=== PATIENT | male | born 1950 | race Caucasian/White ===

== ENCOUNTER 2016-08-01 09:48 | Inpatient (IN) | payer OTHER, MEDICARE ==
[~2016-08-01] VITALS: Ht 177.8 cm; Wt 93.7 kg
[2016-08-01] MEDS ORDERED: DIGO0.25 PO (11:11)
[2016-08-01] MEDS ORDERED: ROSU40 PO (11:11)
[2016-08-01] MEDS ORDERED: VITA100036 PO (11:11)
[2016-08-01] MEDS ORDERED: CARV25TA PO (11:11)
[2016-08-01] MEDS ORDERED: OMEGCAP PO (11:11)
[2016-08-01] MEDS ORDERED: ALLO300T2 PO (11:11)
[2016-08-01] MEDS ORDERED: APIX5TAB PO (11:13)
[2016-08-08] VITALS (7 sets, daily range): BP systolic 110–142; BP diastolic 69–80; PULSE 71–85; RESP 16–18; TEMP 97.1–97.6; O2SAT 96–99
[2016-08-08] MEDS ORDERED: LACTATED RINGER'S 1000 ML IV SCH (06:00)
[2016-08-08] MEDS ORDERED: SODIUM CHLORID 0.9% 500 ML IV SCH (06:00)
[2016-08-08] MEDS ORDERED: VANCOMYCIN HCL 1000 MG ON-CALL/NS 250 ML IV SCH ×2 (06:00)
[2016-08-08] MEDS ORDERED: ACETAMINOPHEN 1000 MG/100 ML VIAL IV PRN (06:00)
[2016-08-08] MEDS ORDERED: INSULIN HUMAN REGULAR 1,000 UNITS/10 ML VIAL SQ PRN (06:00)
[2016-08-08] MEDS ORDERED: ceFAZolin 1,000 MG/NS 100 ML IV SCH ×2 (06:00)
[2016-08-08] MEDS ORDERED: METOPROLOL TARTRATE 25 MG TAB PO PRN (06:00)
[2016-08-08] MEDS ORDERED: ROSU20 PO (06:08)
[2016-08-08] MEDS ORDERED: CARVEDILOL 12.5 MG TAB PO ONE (06:15)
[2016-08-08] MEDS ORDERED: ceFAZolin 2 GM PREMIX 50 ML IV SCH (06:30)
[2016-08-08] MEDS ORDERED: DEXT 5%-NACL 0.9% 1000 ML INJ 1,000 ML IV SCH (06:30)
[2016-08-08] MEDS ORDERED: METRONIDAZOLE 500 MG/100 ML ISONTONIC SOLN IV SCH (06:30)
[2016-08-08] MEDS ORDERED: fentaNYL CITRATE 250 MCG/5 ML AMP ONE (07:08)
[2016-08-08] MEDS ORDERED: FAMOTIDINE 20 MG/2 ML VIAL ONE (07:08)
[2016-08-08] MEDS ORDERED: HYDROmorphone HCL PF 2 MG/ML VIAL ONE (07:08)
[2016-08-08] MEDS ORDERED: DEXAMETHASONE SOD PHOS 4 MG/ML VIAL ONE (07:08)
[2016-08-08] MEDS ORDERED: MIDAZOLAM HCL 2 MG/2 ML VIAL ONE (07:08)
[2016-08-08] MEDS ORDERED: DICLOFENAC SODIUM 37.5 MG/ML VIAL IV PUSH ONE (07:09)
[2016-08-08] MEDS ORDERED: ceFAZolin INJ 1,000 MG VIAL IV ONE (07:50)
[2016-08-08] MEDS ORDERED: BUPIVACAINE/EPINEPHRINE 0.25% PF 30 ML VIAL INFIL ONE (08:19)
[2016-08-08] MEDS ORDERED: NEOSTIGMINE 3 MG/3 ML SYR IV ONE (08:30)
[2016-08-08] MEDS ORDERED: ONDANSETRON HCL 4 MG/2 ML VIAL IV PUSH ONE (08:30)
[2016-08-08] MEDS ORDERED: PROPOFOL 200 MG/20 ML AMP IV ONE (08:30)
[2016-08-08] MEDS ORDERED: LACTATED RINGER'S 1000 ML INJ 1,000 ML IV ONE (08:30)
[2016-08-08] MEDS ORDERED: ePHEDrine/NS 50 MG/5 ML SYR IV ONE (08:30)
[2016-08-08] MEDS ORDERED: PHENYLEPH/NS 1000 MCG/10 ML SYR IV ONE (08:30)
[2016-08-08] MEDS ORDERED: SODIUM CHLORIDE 0.9% FLUSH 5 ML FLUSH IVF PRN (12:15)
[2016-08-08] MEDS ORDERED: POTASSIUM CHLOR 40 MEQ PREMIX 100 ML IV-CENTRAL PRN (12:15)
[2016-08-08] MEDS ORDERED: ENALAPRILAT 1.25 MG/ML VIAL IV PRN (12:15)
[2016-08-08] MEDS ORDERED: KETOROLAC TROMETHAMINE 30 MG/ML (IVP) VIAL IVP PRN (12:15)
[2016-08-08] MEDS ORDERED: ENALAPRILAT 2.5 MG/2 ML VIAL IV PRN (12:15)
[2016-08-08] MEDS ORDERED: diphenhydrAMINE HCL 50 MG/ML VIAL IV PRN (12:15)
[2016-08-08] MEDS ORDERED: ACETAMINOPHEN/HYDROcodone 325 MG/5 MG TAB PO PRN (12:15)
[2016-08-08] MEDS ORDERED: POTASSIUM CHLOR 20 MEQ PREMIX 100 ML IV PRN (12:15)
[2016-08-08] MEDS ORDERED: Post-op Orders (for Pharmacy) MISC XX ONE (12:15)
[2016-08-08] MEDS: SODIUM CHLORIDE 0.9% FLUSH 5 ML FLUSH IVF SCH ×2 (12:15→20:41)
[2016-08-08] MEDS ORDERED: ONDANSETRON HCL 4 MG/2 ML VIAL IV PRN (12:15)
[2016-08-08] MEDS ORDERED: NALOXONE HCL 0.4 MG/ML AMP IV PRN (12:15)
[2016-08-08] MEDS ORDERED: BENZOCAINE 6 MG/MENTHOL 10 MG LOZENGE SUCK-ON PRN (12:15)
[2016-08-08] MEDS ORDERED: ACETAMINOPHEN 325 MG TAB PO PRN (12:15)
[2016-08-08] MEDS ORDERED: *morphine SULFATE 8 MG/ML PERIprocedure ONLY ONE ×2 (12:41→13:27)
[2016-08-08 13:00] LABS: BASOPHIL % 0.3 % (0.0-2.0); HEMATOCRIT 50.6 % (39.0-51.0); HEMO FLAGS DIFF FINAL; LYMPH % 9.2 % (9.0-44.0); LYMPHOCYTE # 1.1 TH/MM3 (1.0-4.8); MEAN CELL VOLUME 86.8 FL (80.0-100.0); MEAN CORPUSCULAR HEMOGLOBIN 29.6 PG (27.0-34.0); MEAN CORPUSCULAR HGB CONC 34.1 % (32.0-36.0); NEUT % 88.5 % (16.0-70.0); PLATELET COUNT 209 TH/MM3 (150-450); RED BLOOD COUNT 5.83 MIL/MM3 (4.50-5.90); RED CELL DISTRIBUTION WIDTH 14.1 % (11.6-17.2); WHITE BLOOD COUNT 12.4 TH/MM3 (4.0-11.0)
[2016-08-08] MEDS: D5-NS + KCL 20 MEQ INJ 1,000 ML IV SCH ×3 (13:10→20:40)
[2016-08-08] MEDS ORDERED: DO NOT ADM ANY ANTICOAGULANT DRUGS XX PRN (13:15)
[2016-08-08] MEDS: MORPHINE SULFATE 30 MG/30 ML PCA IV SCH (13:16)
[2016-08-08] MEDS ORDERED: DIMETHICONE/OXYBENZONE/PADMIATE LIP BALM 4.25 GM ONE (13:29)
[2016-08-08 13:43] LABS: BICARBONATE 26.4 MEQ/L (21.0-32.0)
[2016-08-08] MEDS: PCA - TOTAL MG MORPHINE DELIVERED PER SHIFT SCH ×2 (14:00→20:40)
[2016-08-08] MEDS ORDERED: *HYDROmorphone PF 1 MG VIAL PERIprocedural Use ONLY ONE (14:22)
[2016-08-08] MEDS: metroNIDAZOLE 500 MG INJ 100 ML IV SCH ×2 (16:00→23:24)
[2016-08-08] MEDS ORDERED: *PROMETHAZINE 25 MG/ML VIAL PERIprocedural use ONLY ONE (17:49)
[2016-08-08] MEDS: CARVEDILOL 12.5 MG TAB PO SCH (20:39)
[2016-08-09] VITALS (29 sets, daily range): BP systolic 94–118; BP diastolic 55–74; PULSE 58–88; RESP 18–20; TEMP 97.6–98.3; O2SAT 93–98
[2016-08-09] MEDS: D5-NS + KCL 20 MEQ INJ 1,000 ML IV SCH ×3 (02:02→23:47)
[2016-08-09] MEDS: PCA - TOTAL MG MORPHINE DELIVERED PER SHIFT SCH ×3 (05:50→23:32)
[2016-08-09] MEDS: MORPHINE SULFATE 30 MG/30 ML PCA IV SCH ×2 (05:59→23:29)
[2016-08-09 06:22] LABS: BICARBONATE 27.4 MEQ/L (21.0-32.0); POTASSIUM 4.5 MEQ/L (3.5-5.1)
[2016-08-09 06:59] LABS: AUTOMATED NEUTROPHIL # 8.7 TH/MM3 (1.8-7.7); BASOPHIL % 0.1 % (0.0-2.0); EOSINOPHIL % 0.1 % (0.0-4.0); HEMATOCRIT 47.1 % (39.0-51.0); HEMO FLAGS DIFF FINAL; LYMPH % 16.9 % (9.0-44.0); MEAN CELL VOLUME 88.7 FL (80.0-100.0); MEAN CORPUSCULAR HEMOGLOBIN 29.7 PG (27.0-34.0); MEAN CORPUSCULAR HGB CONC 33.5 % (32.0-36.0); NEUT % 72.9 % (16.0-70.0); PLATELET COUNT 185 TH/MM3 (150-450); RED BLOOD COUNT 5.31 MIL/MM3 (4.50-5.90); RED CELL DISTRIBUTION WIDTH 14.1 % (11.6-17.2)
[2016-08-09] MEDS: metroNIDAZOLE 500 MG INJ 100 ML IV SCH (08:50)
--- NOTE | 2016-08-09 08:50 | HHI.PR ---
Subjective Remarks POD#1 s/p robotic nahum/robotic sigmoid resection, lap rico 'sore', no nausea Objective Vital Signs Date Time Temp Pulse Resp B/P Pulse Ox O2 Delivery O2 Flow Rate FiO2 08/09/16 06:04 20 08/09/16 06:00 72 08/09/16 05:59 20 08/09/16 05:50 20 08/09/16 05:00 70 08/09/16 04:00 Nasal Cannula 2.00 08/09/16 04:00 98.2 76 18 94/55 97 08/09/16 04:00 82 08/09/16 03:00 68 08/09/16 02:00 79 08/09/16 01:00 71 08/09/16 00:00 Nasal Cannula 2.00 08/09/16 00:00 78 08/09/16 00:00 97.6 70 18 110/69 98 08/09/16 00:00 58 08/08/16 23:00 76 08/08/16 22:00 74 08/08/16 21:00 85 08/08/16 20:40 20 08/08/16 20:00 97.1 71 18 110/72 99 08/08/16 20:00 Nasal Cannula 2.00 08/08/16 20:00 79 08/08/16 19:00 78 08/08/16 18:24 75 16 117/69 97 08/08/16 18:24 75 08/08/16 18:05 79 14 133/96 96 Nasal Cannula 2 08/08/16 15:45 67 14 121/74 97 Nasal Cannula 2 08/08/16 13:45 75 14 126/75 98 Nasal Cannula 2 08/08/16 13:16 16 08/08/16 12:45 72 14 142/81 98 Nasal Cannula 4 08/08/16 12:30 77 14 127/86 97 Nasal Cannula 4 08/08/16 12:15 74 14 137/91 98 Nasal Cannula 4 08/08/16 12:10 98.7 78 14 135/93 98 Nasal Cannula 4 I/O 08/08/16 08/08/16 08/08/16 08/09/16 08/09/16 08/09/16 07:00 15:00 23:00 07:00 15:00 23:00 Intake Total 1800 ml 1100 ml 3037 ml Output Total 270 ml 425 ml 600 ml Balance 1530 ml 675 ml 2437 ml Intake Oral 100 ml 360 ml IV Total 1000 ml 2677 ml Other 1800 ml Output Urine Total 425 ml 600 ml Estimated Blood Loss 150 ml Other 120 ml Result Diagram: 08/09/16 0509 08/09/16 0509 Objective Remarks Soft, mild distension, tender Dressings c/d/i Assessment and Plan Assessment and Plan Doing well Decrease IVF Remove stent - kamara out tomorrow [employer] Arely Amor MD Aug 09, 2016 08:50
[2016-08-09] MEDS: DIGOXIN 0.25 MG TAB PO SCH (08:51)
[2016-08-09] MEDS: CARVEDILOL 12.5 MG TAB PO SCH ×2 (08:51→21:54)
[2016-08-09] MEDS: PANTOPRAZOLE SODIUM 40 MG VIAL IVP SCH (08:51)
[2016-08-09] MEDS: SODIUM CHLORIDE 0.9% FLUSH 5 ML FLUSH IVF SCH ×2 (08:51→21:54)
[2016-08-09] MEDS: HEPARIN SODIUM - SQ 10,000 UNITS/ML VIAL SQ SCH ×2 (11:16→23:32)
[2016-08-10] VITALS (19 sets, daily range): BP systolic 121–140; BP diastolic 76–92; PULSE 64–91; RESP 16–18; TEMP 98.2–98.5; O2SAT 92–95
[2016-08-10] MEDS: PCA - TOTAL MG MORPHINE DELIVERED PER SHIFT SCH (05:20)
[2016-08-10 06:16] LABS: BICARBONATE 27.8 MEQ/L (21.0-32.0); POTASSIUM 4.1 MEQ/L (3.5-5.1)
[2016-08-10 06:19] LABS: AUTOMATED NEUTROPHIL # 5.6 TH/MM3 (1.8-7.7); BASOPHIL % 0.4 % (0.0-2.0); EOSINOPHIL # 0.1 TH/MM3 (0-0.4); EOSINOPHIL % 1.2 % (0.0-4.0); HEMATOCRIT 46.3 % (39.0-51.0); HEMO FLAGS DIFF FINAL; LYMPH % 25.3 % (9.0-44.0); LYMPHOCYTE # 2.3 TH/MM3 (1.0-4.8); MEAN CELL VOLUME 90.2 FL (80.0-100.0); MEAN CORPUSCULAR HEMOGLOBIN 29.8 PG (27.0-34.0); MEAN CORPUSCULAR HGB CONC 33.1 % (32.0-36.0); NEUT % 61.1 % (16.0-70.0); PLATELET COUNT 163 TH/MM3 (150-450); RED BLOOD COUNT 5.13 MIL/MM3 (4.50-5.90); RED CELL DISTRIBUTION WIDTH 14.3 % (11.6-17.2); WHITE BLOOD COUNT 9.2 TH/MM3 (4.0-11.0)
[2016-08-10] MEDS: CARVEDILOL 12.5 MG TAB PO SCH ×2 (08:58→22:30)
[2016-08-10] MEDS: DIGOXIN 0.25 MG TAB PO SCH (08:58)
[2016-08-10] MEDS: PANTOPRAZOLE SODIUM 40 MG VIAL IVP SCH (08:58)
[2016-08-10] MEDS: D5-NS + KCL 20 MEQ INJ 1,000 ML IV SCH (09:00)
[2016-08-10] MEDS: SODIUM CHLORIDE 0.9% FLUSH 5 ML FLUSH IVF SCH ×2 (09:00→22:30)
[2016-08-10] MEDS: HEPARIN SODIUM - SQ 10,000 UNITS/ML VIAL SQ SCH ×2 (11:45→22:30)
--- NOTE | 2016-08-10 13:00 | HHI.PR ---
Subjective Remarks POD#2 s/p robotic nahum/robotic sigmoid resection, lap rico comfortable Objective Vital Signs Date Time Temp Pulse Resp B/P Pulse Ox O2 Delivery O2 Flow Rate FiO2 08/10/16 11:47 98.5 73 18 129/78 93 08/10/16 08:52 98.5 81 16 129/81 92 08/10/16 08:52 92 Room Air 08/10/16 07:32 95 21 08/10/16 06:33 73 08/10/16 05:26 98.5 77 18 121/78 95 08/10/16 05:20 18 08/10/16 05:00 75 08/10/16 04:00 80 08/10/16 03:00 80 08/10/16 02:00 80 08/10/16 01:03 80 08/09/16 23:46 16 08/09/16 23:42 95 Room Air 08/09/16 23:34 98.2 74 18 115/74 95 08/09/16 23:32 18 08/09/16 23:29 18 08/09/16 23:00 74 08/09/16 22:00 67 08/09/16 21:54 98.3 80 18 118/68 94 08/09/16 21:00 68 08/09/16 20:00 66 08/09/16 19:00 77 08/09/16 18:00 70 08/09/16 17:15 97.8 76 18 108/64 94 08/09/16 17:05 94 21 08/09/16 17:00 68 08/09/16 16:00 73 08/09/16 15:00 68 08/09/16 14:00 16 08/09/16 14:00 69 08/09/16 13:01 79 I/O 08/09/16 08/09/16 08/09/16 08/10/16 08/10/16 08/10/16 07:00 15:00 23:00 07:00 15:00 23:00 Intake Total 3037 ml 2408 ml 1663 ml Output Total 600 ml 500 ml 600 ml Balance 2437 ml 1908 ml 1063 ml Intake Oral 360 ml 910 ml 480 ml IV Total 2677 ml 1498 ml 1183 ml Output Urine Total 600 ml 500 ml 600 ml Result Diagram: 08/10/1651908/10/16519 Objective Remarks Soft, mild distension, tender wounds clean Assessment and Plan Assessment and Plan d/C kamara Advance diet HL IV d/c [employer] Transfer to B Arely Amor MD Aug 10, 2016 13:00
[2016-08-10] MEDS: ACETAMINOPHEN/HYDROcodone 325 MG/5 MG TAB PO PRN ×2 (13:19→19:17)
[2016-08-11] VITALS: BP 146/84; PULSE 67; RESP 18; TEMP 98; O2SAT 95
[2016-08-11 04:00] VITALS: BP 155/102; PULSE 62; RESP 18; TEMP 97.9; O2SAT 92
[2016-08-11 07:00] VITALS: BP 152/93; PULSE 80; RESP 20; TEMP 97.9; O2SAT 94
[2016-08-11 07:13] LABS: AUTOMATED NEUTROPHIL # 4.7 TH/MM3 (1.8-7.7); BASOPHIL # 0.1 TH/MM3 (0-0.2); BASOPHIL % 0.8 % (0.0-2.0); EOSINOPHIL # 0.2 TH/MM3 (0-0.4); HEMATOCRIT 48.3 % (39.0-51.0); HEMO FLAGS DIFF FINAL; LYMPH % 26.5 % (9.0-44.0); MEAN CELL VOLUME 88.1 FL (80.0-100.0); MEAN CORPUSCULAR HEMOGLOBIN 29.8 PG (27.0-34.0); MEAN CORPUSCULAR HGB CONC 33.8 % (32.0-36.0); NEUT % 60.7 % (16.0-70.0); PLATELET COUNT 172 TH/MM3 (150-450); RED BLOOD COUNT 5.48 MIL/MM3 (4.50-5.90); RED CELL DISTRIBUTION WIDTH 13.7 % (11.6-17.2); WHITE BLOOD COUNT 7.7 TH/MM3 (4.0-11.0)
[2016-08-11 07:54] LABS: BICARBONATE 30.1 MEQ/L (21.0-32.0); POTASSIUM 3.4 MEQ/L (3.5-5.1)
[2016-08-11 09:31] VITALS: O2SAT 97
[2016-08-11] MEDS: PANTOPRAZOLE SODIUM 40 MG VIAL IVP SCH (09:55)
[2016-08-11] MEDS: CARVEDILOL 12.5 MG TAB PO SCH (09:55)
[2016-08-11] MEDS: SODIUM CHLORIDE 0.9% FLUSH 5 ML FLUSH IVF SCH (09:56)
[2016-08-11 11:00] VITALS: BP 150/93; PULSE 71; RESP 18; TEMP 98.1; O2SAT 93
[2016-08-11] MEDS: DIGOXIN 0.25 MG TAB PO SCH (11:23)
[2016-08-11] MEDS: HEPARIN SODIUM - SQ 10,000 UNITS/ML VIAL SQ SCH (11:25)
--- NOTE | 2016-08-11 14:49 | HHI.PR ---
Subjective Remarks POD#3 s/p robotic nahum/robotic sigmoid resection, lap rico comfortable, wants to go home Objective Vital Signs Date Time Temp Pulse Resp B/P Pulse Ox O2 Delivery O2 Flow Rate FiO2 08/11/16 11:00 98.1 71 18 150/93 93 08/11/16 09:31 97 21 08/11/16 07:00 97.9 80 20 152/93 94 08/11/16 07:00 94 Room Air 08/11/16 04:00 97.9 62 18 155/102 92 08/11/16 00:00 98.0 67 18 146/84 95 08/10/16 19:56 21 08/10/16 19:23 98.3 72 18 140/92 93 08/10/16 19:00 93 Room Air 08/10/16 16:25 98.2 64 18 122/76 93 I/O 08/10/16 08/10/16 08/10/16 08/11/16 08/11/16 08/11/16 07:00 15:00 23:00 07:00 15:00 23:00 Intake Total 1663 ml 2170 ml 700 ml Output Total 600 ml 1100 ml Balance 1063 ml 1070 ml 700 ml Intake Oral 480 ml 1270 ml 700 ml IV Total 1183 ml 900 ml 0 ml Output Urine Total 600 ml 1100 ml # Voids 1 4 # Bowel Movements 1 Result Diagram: 08/11/16 0618 08/11/16 0618 Objective Remarks Soft, no distension, tender wounds clean Assessment and Plan Assessment and Plan Home today followup 3 weeks Arely Amor MD Aug 11, 2016 14:49
[2016-08-11] MEDS ORDERED: HYDR-3516 PO (14:52)
[2016-08-11 15:00] VITALS: BP 142/99; PULSE 79; RESP 18; TEMP 97.7; O2SAT 94
--- NOTE | 2016-08-12 18:25 | MP ---
cc: LISANDRO TILLMAN M.D., KATHLEEN M.D. Corrected: 08/26/2016 DATE OF SURGERY: 08/08/2016 PREOPERATIVE DIAGNOSIS: Cholecystitis, chronic POSTOPERATIVE DIAGNOSIS Cholecystitis, chronic ANESTHESIA General endotracheal SURGEON Kevon ESTIMATED BLOOD LOSS Less than 50 mls. COMPLICATIONS: None. DRAINS: None. SPECIMEN: Gallbladder and stones to pathology. PROCEDURE IN DETAIL The patient was taken to the operating room and placed on the operating table in the supine position. After an adequate level of general endotracheal anesthesia was achieved the patient was placed in lithotomy position and Dr. Dell Miramontes came into the room and performed ureteral stent placement for Dr. Amor in anticipation of his sigmoid resection. Please see his dictation for this portion of the procedure. When this was completed the undersigned participated in shaving, prepping and draping of the abdomen. Time-out was taken once again confirming the correct patient, site and procedure to be performed. Skin and subcutaneous tissue was infiltrated with local anesthetic and a 12 mm trocar was inserted to the right of the umbilicus under direct vision. Towel clips were used to elevate the fascia to allow for penetration of the fascia with a direct visualization utilizing the camera and the 12-mm trocar. Low insufflation was changed to high flow after the peritoneal cavity was directly visualized. Three 5 mm trocars were then placed with one in the right midabdomen, one in the right lower quadrant and a third one in the left upper quadrant. These were trocar sites to be used by Dr. Amor for the sigmoid resection portion of the procedure. The fundus of the gallbladder was grasped and retracted upward. A fair amount of old adhesions were seen on the gallbladder. These were taken down with blunt dissection and electrocautery. The gallbladder was then retracted upward and the cystic duct infundibular junction was identified. The cystic artery was also identified and this individual. The artery was doubly clipped proximally, singly clipped on the gallbladder side and divided. The cystic duct infundibular junction could not be easily dissected and thus the dome down approach was utilized. The gallbladder was dissected off of the liver bed down to the level of the infundibulum of the gallbladder. When this had been accomplished, the cystic duct was easily identified. As the patient did not have a dilated common duct or nor did he have elevated LFTs, cholangiogram was not obtained. The common bile duct was visualized on this individual and care was taken to place clips on this the cystic duct near the base of the gallbladder. Two clips were placed on the cystic duct infundibular junction and a single clip was then placed on the infundibulum of the gallbladder was divided between the clips. A small stump of the distal cystic duct was left to the patient were to be relatively short cystic duct was not impinged upon utilizing the clips. When this had been completed, irrigation of the liver bed revealed hemostasis. All of the dissected tissue was also clean and dry. Cystic artery stump and cystic duct stump were seen to be clean and dry. At this point of the gallbladder was placed into an EndoCatch device and removed via the 12 mm trocar and passed off the table. Upper abdomen was once again reexamined and all bleeding seen to be meticulously controlled. Cystic artery stump and cystic duct stump were once again revisualized and seen to be clean and dry. At this point cindi scrubbed out and then Dr. Bellamy scrubbed in to perform colonic portion of the procedure. Please see her dictation for this. MD MERLINE Choudhary/wade /10:00 AM /6:18 PM TASHA
--- NOTE | 2016-08-12 19:23 | MP ---
cc: IRAIDA MIRAMONTES DATE OF SURGERY: 08/08/2016 PREOPERATIVE DIAGNOSIS: Diverticulitis and cholecystitis. POSTOPERATIVE DIAGNOSIS: Diverticulitis and cholecystitis. PROCEDURE: Cystoscopy, bilateral ureteral catheter placement. SURGEON Iraida Miramontes MD. ANESTHESIA General endotracheal tube FLUIDS: 100 cc crystalloid. ESTIMATED BLOOD LOSS: No blood loss. COMPLICATIONS: No complications. PROCEDURE: Alfred Presley is a 66-year-old male who has a history of cholecystitis and diverticulitis. He was scheduled undergo robotic-assisted laparoscopic colectomy by Dr. Amor requests were made for bilateral ureteral catheter placement. He also has cholecystitis in Dr. Kevon was performing a laparoscopic cholecystectomy today also. Risks and benefits discussed and he was willing to proceed. The patient brought to operating room, identified by myself as Alfred Presley. He is placed in dorsal spine position, prepped and draped in the usual sterile fashion, received preprocedure antibiotics, and general endotracheal tube anesthesia was administered. A 22-Eritrean cystoscope was inserted bladder allison cystoscopy showed coapting prostatic lobes but no other abnormalities were identified within the bladder. The left ureteral orifice was identified and a 5-Eritrean open catheter was inserted in the left ureteral orifice without difficulty and then this was then repeated on the right side. The catheters went up without difficulty and a 16-Eritrean Callaway was also inserted. He tolerated procedure well. Iraida MARTINEZ/wade /11:27 AM /7:16 PM
--- NOTE | 2016-08-13 07:07 | MP ---
cc: JOEL DEVLIN M.D., JEFFREY DATE OF SURGERY 08/08/2016 PREOPERATIVE DIAGNOSIS 1. Diverticulitis 2. Cholecystitis POSTOPERATIVE DIAGNOSIS 1. Diverticulitis 2. Cholecystitis 3. Adhesions SURGEON Joel Devlin MD DINKEY ENGINEER [place] ANESTHESIA General per ET tube ESTIMATED BLOOD LOSS 100 cc OPERATIVE INDICATIONS The patient is a 66-year-old male who was recently admitted to the hospital with a combination of both cholecystitis and diverticulitis with micro perforation. OPERATIVE FINDINGS For the gallbladder, please see Dr. Lund's notes for details. For the colon, the patient had an inflamed colon which was adherent to the left pelvic sidewall. The remainder of the colon appeared normal, as did the liver. PROCEDURE COURSE The patient was brought to the operating room, and placed in the supine position. After induction of general anesthesia, Dr. Miramontes came in and performed cystoscopy with placement of bilateral ureteral catheters, please see his operative note for details. Dr. Lund then came in and performed a laparoscopic cholecystectomy. When he was completed, I came into the operating room. At that point, I placed the laparoscope into the previously placed port by Dr. Lund and did some visualization. The sigmoid colon was adherent to the left pelvic sidewall, but there were no other abnormalities which would preclude the robotic approach. All of the ports were in good position with the exception of the right lower quadrant port and I did need to replace that with a port further lateral. A 10/12 port was placed just inside the right anterior superior iliac spine, under direct vision using the laparoscope. The patient was hydroplaned with head down and the small bowel was brought up and out of the pelvis and to the right, which allowed good visibility of the colonic vessels and the robot was docked. The sigmoid colon was retracted down and to the left, and the perineum was scored on the right. Dissection was continued in this plane posterior to the inferior mesenteric vessels until the left ureter was clearly identified and swept away from the dissection plane. Dissection continued in this plane through to the lateral pelvic wall. The adhesions to the left pelvic sidewall were then dissected free until we met our previous dissection. Dissection then continued inferiorly, posterior to the rectum down to level of the mid to distal rectum, and up and around the lateral side on both the right and the left, until we had full mobility of the mid rectum, proximal rectum, and the sigmoid colon. At this point, a window was made around the inferior mesenteric vessel and opened using electrocautery. An [employer] End[employer] stapler, white load, was brought onto the field and placed across the vessels. This was closed, held for 30 seconds, fired, and removed, thus dividing the vessels. A small amount of bleeding on the edge of the staple line was controlled using electrocautery. At this point, a sponge stick was placed into the rectum, and a site was chosen for division of the rectum on the mid rectum/proximal rectum junction. The 33 EEA stapler was then advanced to the same area to be sure that we got good advancement of the stapler to this point. The mesentery at this level was then divided using the harmonic scalpel and a reload of the MANASA stapler was placed across the bowel at this level. This was closed, held for 30 seconds, fired and removed. The descending bowel was then retracted to the right and the lateral peritoneal attachments of the descending colon were dissected free, carefully freeing the descending colon mesentery from underlying Gerota's fascia. This dissection continued up to the splenic flexure, but not around the splenic flexure. After measuring, I felt that the bowel came down nicely and we had adequate length to perform a tension-free anastomosis. The proximal stapled end of the bowel was grasped and the robot was undocked. A 6-8 cm incision was made in the suprapubic area, using electrocautery. Dissection was carried down to the fascia of the anterior abdominal wall, which was split the length of the skin incision. The medial fibers of the rectus abdominis muscle were then divided, and the posterior fascia/peritoneum was also divided the length of the skin incision. A wound protector was then placed and the proximal stapled end of the bowel was brought up and out through the wound protector. A site was then chosen for proximal division of bowel where it came down to the pubic tubercle. The mesentery at this level was divided and ligated using 0 Vicryl ties, and a pursestring stapling device was placed across the bowel at this level. The anvil from the 33 EEA was placed into the cut end of the bowel. One end of the pursestring suture was noted to be cut and not attached, so that was tied. Unfortunately, the other and was also loose. Presumably this was due to a defective suture. With this, that suture was removed and a 2-0 Prolene suture was used to do a hand-sewn pursestring suture around the edge of the cut edge of the bowel. This was then tied around the shaft of the anvil, and a little bit of excess tissue was removed sharply. The 33 EEA stapler was then brought up through the rectum. A small amount of fibrofatty tissue was cleared from the edge of the bowel. The spike was advanced, just posterior to the staple line. The anvil was into the spike and the stapler was closed, making sure that the bowel was not twisted. The stapler was held for 30 seconds, fired, and removed, thus creating an enter- enterotomy. The enterotomy appeared pink and healthy circumferentially. Both anastomotic rings appeared to be complete. Warm normal saline was placed in the pelvis and the proximal bowel was occluded with digital pressure. Air was insufflated into the rectum until gentle tension was noted on the anastomosis, with no sign of any leakage noted. The air was desufflated to the extent possible and the saline was suctioned out of the pelvis. All dissection beds were then examined with no sign of any bleeding was noted. The posterior fascia at the suprapubic incision was closed in a running fashion using #1 PDS, and the anterior fascia at the suprapubic incision was closed in a running fashion using #1 PDS. OpSite was placed over this incision. Air was insufflated into the peritoneal cavity again, and the two 10/12 trocar sites at the umbilical site and the right lower quadrant site were closed using the crossbow closure device and 0 Vicryl suture. These were placed but not secured until the air was desufflated to the extent possible from the abdominal cavity. The sutures were then secured. The wounds were irrigated with warm normal saline. The suprapubic incision was closed in a running subcuticular fashion using 3-0 Vicryl, and the trocar sites were closed in an interrupted subcuticular fashion using 3-0 Vicryl. Steri-Strips and a sterile dressings was then applied. The right ureteral stent was removed. All sponge, needle and sponge counts were correct and the patient was returned to the post anesthesia care unit in stable condition. MD ELI Guaman /12:07 PM /6:32 AM TASHA
--- NOTE | 2016-10-09 12:12 | MD ---
cc: JOEL DEVLIN M.D. ADMISSION DATE: 08/08/2016 DISCHARGE DATE: 08/11/2016 ADMISSION DIAGNOSES 1. Diverticulitis. 2. Cholecystitis. 3. Atrial fibrillation. DISCHARGE DIAGNOSES 1. Diverticulitis. 2. Cholecystitis. 3. Atrial fibrillation. PROCEDURES 1. Cystoscopy with placement of bilateral ureteral catheters. 2. Robotic low anterior resection. 3. Laparoscopic cholecystectomy. HOSPITAL COURSE The patient is a 66-year-old male with a history of diverticulitis with micro-perforation and severe cholecystitis. He was admitted to the hospital on the July,, after an outpatient bowel prep. He was taken to the operating room, where he then underwent the above-named procedures. Postoperatively he did well with rapid return of bowel and bladder function. He was discharged to home on hospital day #3 with instructions to follow up with myself in the office. Final pathology showed chronic cholecystitis and no evidence of diverticulitis. MD DUSTIN Guaman/AMMON /9:50 AM /12:08 PM TASHA
== END 2016-08-11 16:12 | disposition home or self-care (01) | DRG 330 ==
LOC: HSDI 08-08 05:24 → HCPC 08-08 18:24
PROVIDERS: ADMIT Colon & Rectal Surgery; ATTEND Colon & Rectal Surgery
PROC: 0T9B80Z Drainage of Bladder with Drainage Device, Via Natural or Artificial Opening Endoscopic (ICD-10-PCS; 2016-08-08)
PROC: 8E0W8CZ Robotic Assisted Procedure of Trunk Region, Via Natural or Artificial Opening Endoscopic (ICD-10-PCS; 2016-08-08)
PROC: 0DTN4ZZ Resection of Sigmoid Colon, Percutaneous Endoscopic Approach (ICD-10-PCS; principal; 2016-08-08 07:27)
PROC: 0DNG4ZZ Release Left Large Intestine, Percutaneous Endoscopic Approach (ICD-10-PCS; 2016-08-08 07:27)
PROC: 0FT44ZZ Resection of Gallbladder, Percutaneous Endoscopic Approach (ICD-10-PCS; 2016-08-08 07:27)
DX: K57.92 Diverticulitis of intestine, part unspecified, without perforation or abscess without bleeding (principal); K80.10 Calculus of gallbladder with chronic cholecystitis without obstruction; I48.91 Unspecified atrial fibrillation; I11.0 Hypertensive heart disease with heart failure; I50.9 Heart failure, unspecified; E66.9 Obesity, unspecified; K66.0 Peritoneal adhesions (postprocedural) (postinfection); E78.5 Hyperlipidemia, unspecified; Z68.29 Body mass index [BMI] 29.0-29.9, adult; Z79.01 Long term (current) use of anticoagulants; Z86.14 Personal history of Methicillin resistant Staphylococcus aureus infection
CPT/HCPCS: 80048; 85025; 86850; 86900; 86901; 88304; 88307; C9113; J0131; J0690; J1100; J1130; J1170; J1644; J2250; J2270; J2370; J2405; J2550; J2710; J3010; J3370; J3480; J7050; J7120

== ENCOUNTER → 2016-08-01 | Outpatient (CLI) | payer OTHER ==
[~2016-08-01] MED LIST: ALLO100 PO; ALLO300T2 PO; APIX2.5T PO; APIX5TAB PO; ASPI81TA82 PO; CARV25TA PO; CIPR750T10 PO; DIGO0.25 PO; FLAG500T PO; HYDR-3516 PO; LANO0.2510 PO; OMEGCAP PO; ROSU20 PO; ROSU40 PO; SUCR1TAB PO; VITA100036 PO
[2016-08-01 10:39] LABS: BLOOD, URINE SMALL (NEG); COMMENT (UR) CULT NOT INDICATED; CULTURE IF INDICATED CULT NOT INDICATED; GLUCOSE,URINE TRACE mg/dL (NEG); KETONE, URINE NEG (NEG); MUCUS URINE FEW /lpf (OCC); NITRITE,URINE NEG (NEG); URINE COLOR YELLOW (YELLW/STRAW)
[2016-08-01 10:42] LABS: PROTHROMBIN TIME - PATIENT 10.6 SEC (9.8-11.6)
[2016-08-01 10:43] LABS: AUTOMATED NEUTROPHIL # 3.4 TH/MM3 (1.8-7.7); BASOPHIL % 0.7 % (0.0-2.0); EOSINOPHIL # 0.1 TH/MM3 (0-0.4); EOSINOPHIL % 2.2 % (0.0-4.0); HEMATOCRIT 52.4 % (39.0-51.0); HEMO FLAGS DIFF FINAL; LYMPH % 34.2 % (9.0-44.0); LYMPHOCYTE # 2.2 TH/MM3 (1.0-4.8); MEAN CELL VOLUME 86.4 FL (80.0-100.0); MEAN CORPUSCULAR HEMOGLOBIN 29.3 PG (27.0-34.0); MEAN CORPUSCULAR HGB CONC 33.9 % (32.0-36.0); MONO % 10.2 % (0.0-8.0); NEUT % 52.7 % (16.0-70.0); PLATELET COUNT 200 TH/MM3 (150-450); RED BLOOD COUNT 6.06 MIL/MM3 (4.50-5.90); RED CELL DISTRIBUTION WIDTH 14.1 % (11.6-17.2); WHITE BLOOD COUNT 6.4 TH/MM3 (4.0-11.0)
[2016-08-01 11:11] LABS: ALKALINE PHOSPHATASE 69 U/L (45-117); ALT (GPT) 25 U/L (12-78); ANION GAP 10 MEQ/L (5-15); AST (GOT) 11 U/L (15-37); BICARBONATE 28.4 MEQ/L (21.0-32.0); BLOOD UREA NITROGEN 16 MG/DL (7-18); CHLORIDE 103 MEQ/L (98-107); GLOMERULAR FILTRATION RATE 62 ML/MIN (>89); GLUCOSE,FASTING 104 MG/DL (74-99); POTASSIUM 4.4 MEQ/L (3.5-5.1); SODIUM (NA) 141 MEQ/L (136-145)
== END ==
LOC: CPRE 09:38
PROVIDERS: ATTEND Colon & Rectal Surgery
DX: Z01.812 Encounter for preprocedural laboratory examination (principal); K57.32 Diverticulitis of large intestine without perforation or abscess without bleeding
CPT/HCPCS: 36415; 80053; 81001; 85025; 85610; 85730

== ENCOUNTER 2017-01-27 07:40 | Emergency (ER) | payer OTHER ==
[~2017-01-27] VITALS: Ht 177.8 cm; Wt 94.0 kg
[~2017-01-27 07:40] MED LIST changes: -ALLO100 PO; -APIX2.5T PO; -ASPI81TA82 PO; -CIPR750T10 PO; -FLAG500T PO; -LANO0.2510 PO; -OMEGCAP PO; -ROSU40 PO; -SUCR1TAB PO; -VITA100036 PO
[2017-01-27 07:49] VITALS: BP 163/109; PULSE 84; RESP 18; TEMP 98.7; O2SAT 96
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
[2017-01-27] MEDS ORDERED: SODIUM CHLORIDE 0.9% FLUSH 10 ML FLUSH IVF PRN (08:00)
[2017-01-27] MEDS ORDERED: MORPHINE SULFATE 4 MG/ML INJ IV ONE (08:00)
[2017-01-27] MEDS ORDERED: ONDANSETRON HCL 4 MG/2 ML VIAL IVP ONE (08:00)
[2017-01-27 08:02] LABS: AUTOMATED NEUTROPHIL # 3.5 TH/MM3 (1.8-7.7); BASOPHIL # 0.1 TH/MM3 (0-0.2); BASOPHIL % 1.1 % (0.0-2.0); EOSINOPHIL # 0.2 TH/MM3 (0-0.4); EOSINOPHIL % 2.6 % (0.0-4.0); HEMATOCRIT 55.5 % (39.0-51.0); HEMO FLAGS DIFF FINAL; LYMPH % 33.2 % (9.0-44.0); LYMPHOCYTE # 2.2 TH/MM3 (1.0-4.8); MEAN CELL VOLUME 88.4 FL (80.0-100.0); MEAN CORPUSCULAR HEMOGLOBIN 29.6 PG (27.0-34.0); MEAN CORPUSCULAR HGB CONC 33.5 % (32.0-36.0); MONO % 10.3 % (0.0-8.0); NEUT % 52.8 % (16.0-70.0); PLATELET COUNT 174 TH/MM3 (150-450); RED BLOOD COUNT 6.28 MIL/MM3 (4.50-5.90); RED CELL DISTRIBUTION WIDTH 12.3 % (11.6-17.2); WHITE BLOOD COUNT 6.8 TH/MM3 (4.0-11.0)
[2017-01-27 08:06] VITALS: BP 146/100; PULSE 84; RESP 18; O2SAT 97
[2017-01-27] MEDS ORDERED: MORPHINE SULFATE 8 MG/ML INJ ONE (08:08)
[2017-01-27 08:15] LABS: APTT (PATIENT) 27.5 SEC (24.3-30.1); PROTHROMBIN TIME - PATIENT 11.3 SEC (9.8-11.6)
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
[2017-01-27 08:52] LABS: BICARBONATE 24.9 MEQ/L (21.0-32.0)
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
[2017-01-27] MEDS ORDERED: IOHEXOL 350 MG/ML 10 ML VIAL (for RAD DIAG) IV ONE (09:07)
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
[2017-01-27 10:15] VITALS: BP 130/90; PULSE 82; RESP 18; O2SAT 98
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
== END 2017-01-27 12:50 | disposition home or self-care (01) ==
LOC: PHED 07:40
DX: S50.311A Abrasion of right elbow, initial encounter (principal); S80.11XA Contusion of right lower leg, initial encounter; R10.11 Right upper quadrant pain; R07.81 Pleurodynia; I50.9 Heart failure, unspecified; V19.40XA Pedal cycle driver injured in collision with unspecified motor vehicles in traffic accident, initial encounter; Y93.55 Activity, bike riding
CPT/HCPCS: 70450; 71010; 71260; 72125; 72170; 73080; 73590; 73610; 74177; 80048; 85025; 85610; 85730; 86850; 86900; 86901; 86920; 96374; 96375; 99285; J2270; J2405; Q9967